=== PATIENT | male | born 1995 | race Two or more races ===

== ENCOUNTER 2020-03-15 06:06 | Emergency (ER) | payer OTHER ==
[~2020-03-15] VITALS: Ht 177.8 cm; Wt 68.0 kg
[2020-03-15] MEDS ORDERED: LORAZEPAM 0.5 MG TABLET ONE (06:29)
[2020-03-15] MEDS ORDERED: ONDANSETRON 4 MG TAB.RAPDIS ONE (06:29)
[2020-03-15] MEDS ORDERED: ONDANSETRON 4 MG TAB.RAPDIS SL ONE (06:30)
[2020-03-15] MEDS ORDERED: LORAZEPAM 1 MG TABLET PO ONE (06:30)
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
[2020-03-15] MEDS ORDERED: DICYCLOMINE HCL INJ 20 MG/2 ML AMPUL IM ONE ×2 (07:30→07:32)
[2020-03-15 08:30] VITALS: BP 125/71
--- NOTE | 2020-03-15 08:31 | NUR ---
Patient discharged to home in stable condition. Written and verbal after care instructions given. Patient verbalizes understanding of instruction.
== END 2020-03-15 08:31 | disposition home or self-care (01) ==
LOC: ER 06:12
DX: R11.2 Nausea with vomiting, unspecified (principal); R10.13 Epigastric pain; F12.10 Cannabis abuse, uncomplicated
CPT/HCPCS: 96372; 99283; J0500; Q0162